=== PATIENT | female | born 1930 | race Caucasian/White ===

== ENCOUNTER 2016-12-11 17:57 | Emergency (ER) | payer MEDICARE, OTHER ==
[~2016-12-11 17:57] MED LIST: ARICEPT5 PO; ASAB PO; AZOPT OPH; CEFT5 PO; COMBIGAN0.2 MG/0.5 OPH; FISH-EPA1000 MG PO; FLONASE NAS; FLORASTOR250 MG PO; GLUCOPHAGE1000 MG PO; GLUCPH PO; HYDREA PO; L40 PO; LISINOPRIL40 MG PO; LUMIGAN2.5 ML OPH; MELATONIN5 M1 PO; MUCINEX600 MG PO; NEXIUM40 PO; NORV10 PO; PAXIL40 MG PO; PROAIR HFA INH; RISP2 PO; SINGULAIR1 PO; T PO; VITAMIN D31000 UNIT PO; ZOCOR40 PO
== END 2016-12-11 18:07 | disposition home or self-care (01) ==
LOC: ER 17:57
DX: S42.202A Unspecified fracture of upper end of left humerus, initial encounter for closed fracture (principal); I10 Essential (primary) hypertension; I50.9 Heart failure, unspecified; F32.9 Major depressive disorder, single episode, unspecified; E11.9 Type 2 diabetes mellitus without complications; Z87.01 Personal history of pneumonia (recurrent); Z88.8 Allergy status to other drugs, medicaments and biological substances; Z79.899 Other long term (current) drug therapy; Z79.82 Long term (current) use of aspirin; W19.XXXA Unspecified fall, initial encounter
CPT/HCPCS: 73030-LT; 73060-LT; 99283